=== PATIENT | male | born 1985 | race Asian ===

== ENCOUNTER 2017-05-06 04:01 | Emergency (ER) | payer SELFPAY ==
[~2017-05-06] VITALS: Ht 175.3 cm; Wt 59.0 kg
[2017-05-06 04:01] VITALS: BP_SYST 114
[2017-05-06 04:18] VITALS: BP_SYST 114
== END 2017-05-06 04:18 | disposition home or self-care (01) ==
LOC: SED 04:01
DX: Z02.89 Encounter for other administrative examinations (principal); V89.2XXA Person injured in unspecified motor-vehicle accident, traffic, initial encounter; Y93.89 Activity, other specified; Y92.488 Other paved roadways as the place of occurrence of the external cause; Y99.8 Other external cause status
CPT/HCPCS: 99283